=== PATIENT | male | born 1965 | race Caucasian/White ===

== ENCOUNTER 2024-04-06 13:23 | Inpatient (IN) | payer OTHER ==
[2024-04-06 14:04] VITALS: BMI 18.0
[2024-04-06] MEDS ORDERED: P-EPHED 60MG/TRIPROLIDI 2.5MG TABLET PO PRN (14:42)
[2024-04-06] MEDS ORDERED: hydrOXYzine PAMOATE 25 MG CAPSULE (FP) PO PRN (14:42)
[2024-04-06] MEDS ORDERED: ACETAMINOPHEN 325 MG TABLET (FP) PO PRN (14:42)
[2024-04-06] MEDS ORDERED: LOPERAMIDE HCL 2 MG CAPSULE PO PRN (14:42)
[2024-04-06] MEDS ORDERED: guaiFENesin 600 MG TABLET.ER (FP) PO PRN (14:42)
[2024-04-06] MEDS ORDERED: DICYCLOMINE HCL 10 MG CAPSULE PO PRN (14:42)
[2024-04-06] MEDS ORDERED: MAGNESIUM HYDROX 2400MG/30ML ORAL SUSPENSION 30 ML CUP PO PRN (14:42)
[2024-04-06] MEDS ORDERED: MAG HYDROX/AL HYDROX/SIMETH 30 ML UNIT-DOSE CUP PO PRN (14:42)
[2024-04-06] MEDS ORDERED: NICOTINE POLACRILEX 2 MG GUM BUC PRN (14:42)
[2024-04-06] MEDS ORDERED: NICOTINE POLACRILEX 2 MG LOZENGE BC PRN (14:42)
[2024-04-06] MEDS ORDERED: IBUPROFEN 400 MG TABLET (FP) PO PRN (14:42)
[2024-04-06] MEDS ORDERED: NALOXONE (NARCAN) HCL 4 MG/0.1 ML SPRAY NS PRN (14:42)
[2024-04-06] MEDS ORDERED: POLYETHYLENE GLYCOL (HEALTHYLAX) 3350 17 GM PACKET PO PRN (14:42)
[2024-04-06] MEDS ORDERED: NALOXONE HCL 0.4 MG/ML VIAL IM PRN (14:42)
[2024-04-06] MEDS ORDERED: BENZONATATE 200 MG CAPSULE PO PRN (14:42)
[2024-04-06] MEDS ORDERED: BENZOCAINE/MENTHOL (CHLORASEPTIC ) LOZENGE MM PRN (14:42)
[2024-04-06] MEDS: MELATONIN 5 MG TABLETS PO SCH (22:18)
[2024-04-06] MEDS: THIAMINE 100 MG TABLET PO SCH (22:18)
[2024-04-06] MEDS: IBUPROFEN 600 MG TABLET (FP) PO PRN (22:19)
[2024-04-07] MEDS: PRENATAL VITAMINS W/ FOLIC ACID TABLET (FP) PO SCH (10:27)
[2024-04-07] MEDS: amLODIPine BESYLATE 2.5 MG TABLET (FP) PO SCH (11:17)
[2024-04-07] MEDS: BUPRENORPHINE HCL 150 MCG, BUPRENORPHINE HCL 75 MCG BC ONE (11:17)
[2024-04-07 11:40] LABS: HEMATOCRIT 38.6 % (35.4-49); HEMOGLOBIN 12.9 GM/dL (11.7-16.9); MCH 31.4 pg (25.7-33.7); MCHC 33.3 g/dl (32.0-35.9); MEAN CELL VOLUME 94.2 fl (80-96); MEAN PLT VOLUME 9.8 fl (7.5-11.1); PLATELET COUNT 237 10^3/uL (134-434); RDW 14.2 % (11.9-15.9); WHITE BLOOD COUNT 8.1 K/mm3 (4.0-10.0)
[2024-04-07 11:43] LABS: CHLORIDE 107 mmol/L (98-107); POTASSIUM 3.9 mmol/L (3.5-5.1); SODIUM 140 mmol/L (136-145)
[2024-04-07 11:55] LABS: ALBUMIN 3.1 g/dl (3.4-5.0); ANION GAP 8 mmol/L (4-13); BLOOD UREA NITROGEN 17.6 mg/dL (7-18); CALCIUM 8.8 mg/dL (8.5-10.1); CO2 25 mmol/L (21-32); GLUCOSE,RANDOM 132 mg/dL (74-106)
[2024-04-07 11:59] LABS: CREATININE 0.8 mg/dL (0.55-1.3); SGOT/AST 14 U/L (15-37); SGPT/ALT 15 U/L (13-61)
[2024-04-07 12:00] LABS: BILIRUBIN,TOTAL 0.4 mg/dL (0.2-1); TOT PROT 6.3 g/dl (6.4-8.2)
[2024-04-07 12:02] LABS: ALK PHOS 69 U/L (45-117)
[2024-04-07] MEDS: cloNIDine HCL 0.1 MG TABLET PO ONE ×2 (12:34→13:04)
[2024-04-07] MEDS: SALICYLIC ACID (WART REMOVER) 9 ML LIQUID TP SCH (13:11)
[2024-04-07] MEDS: cloNIDine HCL 0.1 MG TABLET PO PRN (21:54)
[2024-04-07] MEDS: BUPRENORPHINE HCL 150 MCG, BUPRENORPHINE HCL 75 MCG BC PRN (21:55)
[2024-04-08] MEDS ORDERED: BUPRENORPHINE HCL 150 MCG, BUPRENORPHINE HCL 75 MCG BC PRN
[2024-04-08] MEDS: BUPRENORPHINE HCL 150 MCG, BUPRENORPHINE HCL 75 MCG BC SCH (05:59)
[2024-04-08] MEDS: METHOCARBAMOL 500 MG TABLET PO PRN (09:33)
[2024-04-09] MEDS ORDERED: BUPRENORPHINE HCL 450 MCG FILM BC PRN
[2024-04-09] MEDS: BUPRENORPHINE HCL 450 MCG FILM BC SCH (05:02)
[2024-04-09] MEDS ORDERED: BUPRENORPHINE/NALOXONE 2 MG/0.5 MG FILM PACKET SL SCH (06:00)
[2024-04-09] MEDS: amLODIPine BESYLATE 2.5 MG TABLET (FP) PO SCH (09:42)
[2024-04-09] MEDS: ONDANSETRON *ODT* 4 MG TABLET SL PRN (12:43)
[2024-04-09] MEDS: BISMUTH SUBSALICYLATE 262 MG/15 ML BTL PO PRN (21:20)
[2024-04-10] MEDS: BUPRENORPHINE/NALOXONE 2 MG/0.5 MG FILM PACKET SL SCH (05:52)
[2024-04-11 09:03] VITALS: BP 126/69; PULSE 85; RESP 18; TEMP 98.4
== END 2024-04-11 12:50 | disposition other institution (70) | DRG 773 ==
LOC: YASAS 13:23 → Y6N 15:51
PROVIDERS: ADMIT Allergy & Immunology; ATTEND Psychiatry & Neurology Pain Medicine
PROC: HZ2ZZZZ Detoxification Services for Substance Abuse Treatment (ICD-10-PCS; principal; 2024-04-06)
DX: F11.23 Opioid dependence with withdrawal (principal); F14.20 Cocaine dependence, uncomplicated; F12.20 Cannabis dependence, uncomplicated; F17.210 Nicotine dependence, cigarettes, uncomplicated; F43.10 Post-traumatic stress disorder, unspecified; E11.9 Type 2 diabetes mellitus without complications; I10 Essential (primary) hypertension; M19.90 Unspecified osteoarthritis, unspecified site; M06.9 Rheumatoid arthritis, unspecified; Z86.59 Personal history of other mental and behavioral disorders; Z87.820 Personal history of traumatic brain injury; Z99.89 Dependence on other enabling machines and devices
CPT/HCPCS: 36415; 80053; 80305; 80307; 82962; 85027; 86780; 87811; 93005; 93010; Q0162

== ENCOUNTER 2024-04-11 13:08 | Inpatient (IN) | payer OTHER ==
[2024-04-11] MEDS ORDERED: NALOXONE HCL 0.4 MG/ML VIAL IM PRN (14:37)
[2024-04-11] MEDS ORDERED: hydrOXYzine PAMOATE 25 MG CAPSULE (FP) PO PRN (14:37)
[2024-04-11] MEDS ORDERED: NALOXONE (NARCAN) HCL 4 MG/0.1 ML SPRAY NS PRN (14:37)
[2024-04-11] MEDS ORDERED: MAGNESIUM HYDROX 2400MG/30ML ORAL SUSPENSION 30 ML CUP PO PRN (14:37)
[2024-04-11] MEDS ORDERED: guaiFENesin 600 MG TABLET.ER (FP) PO PRN (14:37)
[2024-04-11] MEDS ORDERED: LOPERAMIDE HCL 2 MG CAPSULE PO PRN (14:37)
[2024-04-11] MEDS ORDERED: POLYETHYLENE GLYCOL (HEALTHYLAX) 3350 17 GM PACKET PO PRN (14:37)
[2024-04-11] MEDS ORDERED: BENZONATATE 200 MG CAPSULE PO PRN (14:37)
[2024-04-11] MEDS ORDERED: BENZOCAINE/MENTHOL (CHLORASEPTIC ) LOZENGE MM PRN (14:37)
[2024-04-11] MEDS ORDERED: MAG HYDROX/AL HYDROX/SIMETH 30 ML UNIT-DOSE CUP PO PRN (14:37)
[2024-04-11] MEDS ORDERED: IBUPROFEN 400 MG TABLET (FP) PO PRN (14:37)
[2024-04-11] MEDS ORDERED: ACETAMINOPHEN 325 MG TABLET (FP) PO PRN (14:37)
[2024-04-11] MEDS: THIAMINE 100 MG TABLET PO SCH (22:05)
[2024-04-11] MEDS: MELATONIN 5 MG TABLETS PO SCH (22:05)
[2024-04-12] MEDS: amLODIPine BESYLATE 5 MG TABLET (FP) PO SCH (09:38)
[2024-04-12] MEDS: BUPRENORPHINE/NALOXONE 2 MG/0.5 MG FILM PACKET SL SCH (09:39)
[2024-04-12] MEDS: PRENATAL VITAMINS W/ FOLIC ACID TABLET (FP) PO SCH (09:39)
[2024-04-12 14:43] LABS: POTASSIUM 4.5 mmol/L (3.5-5.1)
[2024-04-12 14:46] LABS: CALCIUM 9.5 mg/dL (8.5-10.1)
[2024-04-12 14:47] LABS: BLOOD UREA NITROGEN 23.6 mg/dL (7-18); HEMATOCRIT 37.6 % (35.4-49); HEMOGLOBIN 12.3 GM/dL (11.7-16.9); MCH 31.8 pg (25.7-33.7); MCHC 32.9 g/dl (32.0-35.9); MEAN CELL VOLUME 96.6 fl (80-96); MEAN PLT VOLUME 10.5 fl (7.5-11.1); PLATELET COUNT 189 10^3/uL (134-434); RBC 3.89 M/mm3 (4.00-5.60); RDW 14.9 % (11.9-15.9); WHITE BLOOD COUNT 4.2 K/mm3 (4.0-10.0)
[2024-04-12 14:50] LABS: CREATININE 0.8 mg/dL (0.55-1.3)
[2024-04-12 14:51] LABS: BILIRUBIN,TOTAL 0.2 mg/dL (0.2-1); TOT PROT 7.5 g/dl (6.4-8.2)
[2024-04-12 14:55] LABS: ALBUMIN 3.8 g/dl (3.4-5.0)
[2024-04-12 15:25] LABS: SYPHILIS W/ RPR CONF NON-REACTIVE (NONREACTIVE)
[2024-04-12] MEDS: IBUPROFEN 600 MG TABLET (FP) PO PRN (23:22)
[2024-04-13 14:33] LABS: URINE APPEARANCE CLEAR; URINE BILIRUBIN NEGATIVE (NEGATIVE); URINE COLOR YELLOW; URINE GLUCOSE (UA) NEGATIVE (NEGATIVE); URINE KETONE NEGATIVE (NEGATIVE); URINE LEUK ESTERASE NEGATIVE (NEGATIVE); URINE NITRITE NEGATIVE (NEGATIVE); URINE PROTEIN NEGATIVE (NEGATIVE); URINE UROBILINOGEN 0.2 mg/dL (0.2-1.0)
[2024-04-13] MEDS: SUVOREXANT 10 MG TABLET PO PRN (21:18)
[2024-04-16 12:31] VITALS: BP 137/86; PULSE 99; RESP 18; TEMP 97.6
[2024-04-16] MEDS: amLODIPine BESYLATE 5 MG TABLET (FP) PO ONE (12:33)
[2024-04-16] MEDS: BUPRENORPHINE/NALOXONE 2 MG/0.5 MG FILM PACKET SL ONE (12:34)
== END 2024-04-16 13:12 | disposition home or self-care (01) | DRG 772 ==
LOC: YASAS 13:08 → Y3NR 13:10 → Y3E 04-12 11:23
PROVIDERS: ADMIT Psychiatry & Neurology Pain Medicine; ATTEND Psychiatry & Neurology Pain Medicine
PROC: HZ42ZZZ Group Counseling for Substance Abuse Treatment, Cognitive-Behavioral (ICD-10-PCS; principal; 2024-04-11)
DX: F11.20 Opioid dependence, uncomplicated (principal); F14.20 Cocaine dependence, uncomplicated; F12.20 Cannabis dependence, uncomplicated; F17.210 Nicotine dependence, cigarettes, uncomplicated; F32.A Depression, unspecified; E11.9 Type 2 diabetes mellitus without complications; I10 Essential (primary) hypertension; Z86.59 Personal history of other mental and behavioral disorders; Z87.820 Personal history of traumatic brain injury
CPT/HCPCS: 36415; 80053; 80307; 81003; 85027; 86780; 86803